=== PATIENT | female | born 1930 | race Caucasian/White ===

== ENCOUNTER → 2016-09-22 | Outpatient (REF) | payer MEDICARE, MEDICAID ==
[2016-09-22 19:27] LABS: PERCENT SATURATION 22.4 % (13.2-37.4)
== END ==
LOC: M LAB REF 17:10
PROVIDERS: ATTEND Internal Medicine Nephrology
DX: D64.9 Anemia, unspecified (principal)

== ENCOUNTER → 2016-11-27 | Outpatient (REF) | payer MEDICARE, MEDICAID ==
[~2016-11-27] MED LIST: ALLO100T PO; AMLO5TAB2 PO; ASPI1CHW2 PO; FURO20TA2 PO; GLIP10TA6 PO; MELA5TAB17 PO; METO1TAB7 PO; PROC20005 IJ; SIMV20TA2 PO; TRAD5TAB PO; TYLE500T78 PO; VITA100072 PO; VITAD1000T PO
== END ==
LOC: M LAB REF 17:11
PROVIDERS: ATTEND Internal Medicine Nephrology
DX: N18.4 Chronic kidney disease, stage 4 (severe) (principal); N39.0 Urinary tract infection, site not specified

== ENCOUNTER → 2017-02-10 | Outpatient (REF) | payer MEDICARE, MEDICAID ==
[2017-02-10 19:21] LABS: FOLATE 10.9 NG/ML
== END ==
LOC: M LAB REF 17:26
PROVIDERS: ATTEND Internal Medicine Nephrology
DX: N18.9 Chronic kidney disease, unspecified (principal); D63.1 Anemia in chronic kidney disease

== ENCOUNTER → 2017-03-03 | Outpatient (REF) | payer MEDICARE, MEDICAID ==
[2017-03-03 17:37] LABS: CHOLESTEROL LEVEL 72 MG/DL (<200); TRIGLYCERIDES LEVEL 137 MG/DL (<150)
[2017-03-04 10:31] LABS: HEPATITIS B SURFACE ANTIBODY NEGATIVE (POSITIVE)
== END ==
LOC: M LAB REF 12:40
PROVIDERS: ATTEND Internal Medicine Nephrology
DX: N17.9 Acute kidney failure, unspecified (principal); Z79.899 Other long term (current) drug therapy

== ENCOUNTER → 2017-03-04 | Outpatient (CLI) | payer MEDICARE, MEDICAID ==
--- NOTE | 2017-03-04 17:20 | REP ---
Renal ultrasound: Comparison is 01/23/2012. The kidneys are normal size. The right kidney measures 10.0-4.2 x 5.3 cm. The left kidney measures 9.4 x 5.2 x 4.4 cm. There is echogenic renal cortex bilaterally, compatible with chronic renal medical disease. There is a 2.1 x 2.0 cm simple cyst in the left kidney at the mid pole laterally. This is unchanged in size. There is a 5.3 centimeter complex cyst with septations in the left renal upper pole. This measured 6.8 cm [address]. On a CT of the abdomen and pelvis dated 02/20/2012 without IV contrast this cyst measured 6.0 cm. If the patient's clinical condition will I would recommend follow-up CT or MRI of this system without and with IV contrast. 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 Recommend follow-up MRI or CT without and with IV contrast if the patient's clinical condition will permit for follow-up evaluation of this cyst. Simple cyst in the right kidney. Otherwise, negative renal ultrasound. The bladder is nondistended and cannot be evaluated. Signed by Leno Doshi MD 03/04/2017 05:12 P
== END ==
LOC: M RAD 16:09
PROVIDERS: ATTEND Internal Medicine Nephrology
DX: N18.4 Chronic kidney disease, stage 4 (severe) (principal)

== ENCOUNTER → 2017-03-09 | Outpatient (REF) | payer MEDICARE, MEDICAID ==
[2017-03-09 19:25] LABS: CHOLESTEROL LEVEL 67 MG/DL (<200); TRIGLYCERIDES LEVEL 152 MG/DL (<150)
[2017-03-11 12:05] LABS: HEPATITIS B SURFACE ANTIBODY NEGATIVE (POSITIVE)
== END ==
LOC: M LAB REF 17:03
PROVIDERS: ATTEND Internal Medicine Nephrology
DX: N18.5 Chronic kidney disease, stage 5 (principal)

== ENCOUNTER → 2017-03-20 | Outpatient (CLI) | payer MEDICARE, MEDICAID ==
--- NOTE | 2017-03-20 16:16 | REP ---
BILATERAL UPPER EXTREMITY DUPLEX VENOUS AND ARTERIAL ULTRASOUND: Real-time ultrasound evaluation and duplex Doppler interrogation of the bilateral upper extremity arterial and venous systems is performed to evaluate for AV fistula placement. There is no DVT in bilateral upper extremities. Diameter of the right basilic vein at the upper humerus is 6 mm and lower humerus 5 mm. Diameter of the basilic vein in the forearm is 2 mm. Median cubital vein is 5 mm. Right cephalic vein demonstrates diameter of 3 mm in the upper humerus and 2 mm at the lower humerus and also in the forearm and at the wrist. Left basilic vein demonstrates diameter of 3 mm at the level of the humerus and 2 mm in the forearm and wrist. Left median cubital vein measures 3 mm. Left cephalic vein measures 3 mm in diameter at the level of the humerus and 2 mm in the forearm and wrist. The right axillary artery demonstrates a diameter of 7 mm with biphasic wave form and peak velocity of 38 cm/s. Right brachial artery demonstrates a diameter of 5 mm with triphasic wave form and peak velocity 81.3 cm/s. Right radial and ulnar arteries demonstrate triphasic wave forms with diameters of 2 mm. Left axillary artery demonstrates a diameter is 7 mm and peak systolic velocity 90.4 cm/s with triphasic wave form. Left brachial artery demonstrates diameter of 5 mm with triphasic wave form and peak velocity 77.8 cm/s. Left radial and ulnar arteries demonstrate a diameter of 2 mm with triphasic wave form in the radial artery and biphasic wave form in the ulnar artery. Signed by Leno Hendricks MD 03/23/2017 09:53 A
== END ==
LOC: M RAD 11:48
PROVIDERS: ATTEND Surgery Vascular Surgery
DX: N18.6 End stage renal disease (principal)

== ENCOUNTER 2017-04-02 10:54 | Day surgery (SDC) | payer MEDICARE, MEDICAID ==
[~2017-04-02] VITALS: Ht 160 cm; Wt 102.1 kg
[2017-04-02] MEDS ORDERED: NS 1,000 ML IV SCH (11:15)
[2017-04-02] MEDS ORDERED: PROPOFOL 200 MG/20 ML VIAL As Ordered ONE (12:16)
[2017-04-02] MEDS ORDERED: MIDAZOLAM INJ 2 MG/2 ML VIAL (J2250) As Ordered ONE (12:16)
[2017-04-02] MEDS ORDERED: fentaNYL 100 MCG/2 ML INJECTION (J3010) As Ordered ONE (12:16)
[2017-04-02] MEDS ORDERED: LIDOCAINE 2% INJ 100 MG/5 ML SDV (FOR ANES.) As Ordered ONE (12:16)
[2017-04-02] MEDS ORDERED: HEPARIN SOD (PORCINE) 5000 UNITS/ML VIAL As Ordered ONE (12:46)
[2017-04-02] MEDS ORDERED: BUPIVACAINE HCL 0.5% 30 ML VIAL As Ordered ONE (12:49)
[2017-04-02] MEDS ORDERED: LIDOCAINE 1% SDV INJ 30 ML VIAL As Ordered ONE (12:49)
[2017-04-02 15:18] VITALS: BP 174/71
--- NOTE | 2017-04-10 13:33 | RO ---
DATE OF PROCEDURE: 04/02/2017 PREOPERATIVE DIAGNOSIS: Chronic renal insufficiency, nearing end-stage renal disease. POSTOPERATIVE DIAGNOSES: Chronic renal insufficiency, nearing end-stage renal disease. PROCEDURE: Left brachiocephalic arteriovenous fistula creation. ATTENDING SURGEON: Lars Gardiner MD TINWARE LITHOGRAPH PRESS OPERATOR: None. ANESTHESIA: Local Monitored anesthesia care (MAC). ESTIMATED BLOOD LOSS: 30 mL IV FLUID: 300 mL HEPARIN: None. COMPLICATIONS: None. DRAINS: None. SPECIMENS: None. INDICATION: The patient is an 86-year-old female with renal insufficiency nearing end-stage renal disease who will require access in the future for hemodialysis. The patient was evaluated and felt to be a good candidate for a left brachiocephalic arteriovenous fistula as her ultrasound showed poor cephalic vein at the wrist and forearm region. Risks, benefits, and alternative treatment options were discussed with the patient. DESCRIPTION OF PROCEDURE: Patient was taken to the operating room, placed supine on the operating room table, and the left upper extremity was prepped and draped in a standard surgical fashion. A time-out was then conducted confirming the correct patient, procedure and laterality. The skin overlying the cephalic vein and brachial artery at the antecubital fossa were anesthetized with 1% lidocaine mixed with 0.50% Marcaine. A transverse incision was then made exposing the cephalic vein and the brachial artery which were both encircled with Vesseloops after being sharply dissected free. The cephalic vein was transected after ligating the cephalic vein as far distal as possible. This was dilated with heparinized saline and then anastomosis of the brachial artery in end-to-side fashion using #6-0 Prolene suture. There was good flow in the fistula at the completion of the anastomosis as well as in the brachial artery distal to the arteriovenous anastomosis. Hemostasis was obtained after which the incision was closed using #2-0 Vicryl to approximate the thecal layers and #3-0 Monocryl to approximate the skin in a running subcuticular fashion. Steri-Strips and dressings were applied. Patient tolerated the procedure well. All instrument, sponge, and needle counts were correct at the end of the case. There were no complications. Dr. Gardiner was present for and directed the entire case. Patient was transferred to the holding area and subsequently discharged in stable condition.
== END 2017-04-02 15:35 | disposition home or self-care (01) ==
LOC: M SDC 10:54
PROVIDERS: ATTEND Surgery Vascular Surgery
DX: N18.6 End stage renal disease (principal); Z98.61 Coronary angioplasty status; I25.10 Atherosclerotic heart disease of native coronary artery without angina pectoris; I25.2 Old myocardial infarction; E10.9 Type 1 diabetes mellitus without complications; Z79.4 Long term (current) use of insulin; Z88.8 Allergy status to other drugs, medicaments and biological substances; Z79.82 Long term (current) use of aspirin; Z79.899 Other long term (current) drug therapy
CPT/HCPCS: 36415; 36821; 84132; J2250; J3010

== ENCOUNTER → 2017-04-16 | Outpatient (CLI) | payer MEDICARE, MEDICAID ==
[~2017-04-16] MED LIST changes: +HEPARIN 1,000 UNITS/ML 10ML VIAL (FOR RADIOLOGY& DIALYSIS ONLY) As Ordered ONE; +LIDOCAINE 2% MDV 20 ML VIAL As Ordered ONE
--- NOTE | 2017-05-20 08:06 | REPIR ---
DATE OF PROCEDURE: 04/16/2017 PREPROCEDURE DIAGNOSIS: Acute renal failure requiring hemodialysis. POSTPROCEDURE DIAGNOSIS: Acute renal failure requiring hemodialysis. PROCEDURE: Ultrasound with fluoroscopic guided right internal jugular vein 19 cm tip to cuff central venous tunnel catheter placement with an EvenMore dialysis catheter. SURGEON: Dr. Lars Gardiner BAGGAGE CLERK: ANESTHESIA: Local with 20 mL of 2% lidocaine. FLUORO TIME: 2.222 minutes. CONTRAST: None. COMPLICATIONS: None. DRAINS: None. SPECIMENS: None. IMPLANTS: Right internal jugular vein 19 cm tips to cuff PermaCath. INDICATION: The patient is an 86-year-old female with renal failure requiring hemodialysis and access for dialysis. The patient will undergo placement of a central venous tunnel catheter for dialysis access. The risks, benefits, and alternative treatment options were discussed with the patient. DESCRIPTION OF PROCEDURE: The patient was taken to the angiography suite, placed supine on the angiography room table and then prepped and draped in the standard surgical fashion. The ultrasound was used to evaluate toe right internal jugular vein which was easily compressible, widely patent and free of thrombus. Ultrasound was then used to guide cannulation of the right internal jugular vein with real-time concurrent visualization of the entry of the micropuncture needle into the right internal jugular vein with a hard copy image preserved. The micropuncture wire was advanced through the micropuncture needle which was upsized to a micropuncture sheath and an wire was advanced through the micropuncture sheath which was used to sequentially dilate the right internal jugular vein under fluoroscopic guidance in an introducer sheath position. The 19 cm tip to cuff catheter was tunneled through a puncture wound in the right chest and was brought out of the puncture wound of the right internal jugular vein entry site and then advanced into the introducer sheath which was pealed away and removed. The catheter was positioned with the tip in the superior vena cava right atrial junction under fluoroscopic guidance. The catheter was then flushed and noted to flush easily and both ports were aspirated and noted to aspirate easily. The catheter was secured to the right anterior chest wall using #2-0 Prolene sutures. A puncture wound in the right neck was closed using #3-0 Monocryl in an inverted interrupted fashion. Dressing were applied. The patient tolerated the procedure well. All instruments, sponge and needle counts were correct at the end of the case. There were no complications. Dr. Gardiner was present for and directed the entire case. The catheter was stable for use with dialysis access. RADIOLOGIC SUPERVISION INTERPRETATION: The ultrasound showed the right internal jugular vein to be easily compressible, widely patent and free of thrombus and the ultrasound was used to guide cannulation with real-time concurrent visualization of the advancement of the micropuncture needle into the right internal jugular vein with a hard copy image preserved. The right internal jugular vein was then sequentially dilated under fluoroscopic guidance and the catheter positioned under fluoroscopic guidance with the tip in the superior vena cava right atrial junction. Final fluoroscopic image showed the catheter to be in good position and good alignment with no new hemothorax or pneumothorax noted and the catheter was stable for use for dialysis access.
== END | disposition home or self-care (01) ==
LOC: M IRPRO 13:32
PROVIDERS: ATTEND Surgery Vascular Surgery
DX: N17.9 Acute kidney failure, unspecified (principal)
CPT/HCPCS: 36558; 76937; 77001; C1750; C1769; C1894

== ENCOUNTER 2017-04-29 20:16 | Outpatient (CLI) | payer MEDICARE, MEDICAID ==
[~2017-04-29 20:16] MED LIST changes: -HEPARIN 1,000 UNITS/ML 10ML VIAL (FOR RADIOLOGY& DIALYSIS ONLY) As Ordered ONE; -LIDOCAINE 2% MDV 20 ML VIAL As Ordered ONE
[2017-04-29] MEDS ORDERED: amLODIPine 5 MG TAB PO SCH ×2 (21:00→22:45)
[2017-04-29] MEDS ORDERED: METOPROLOL SUCC (TopROL XL) 50MG **XL** TAB PO SCH ×2 (21:00→22:45)
[2017-04-29 23:03] VITALS: BP 188/79
== END 2017-04-30 08:45 | disposition home or self-care (01) ==
LOC: M OPCLI5PR 20:16 → M MS5PR 20:27 → M OPCLI5PR 04-30 08:45
PROVIDERS: ATTEND Internal Medicine Nephrology
DX: D50.0 Iron deficiency anemia secondary to blood loss (chronic) (principal); Z88.0 Allergy status to penicillin; Z88.8 Allergy status to other drugs, medicaments and biological substances; Z79.84 Long term (current) use of oral hypoglycemic drugs; Z79.899 Other long term (current) drug therapy
CPT/HCPCS: 36415; 36430; 86850; 86920; P9016

== ENCOUNTER → 2017-07-16 | Outpatient (CLI) | payer MEDICARE, MEDICAID ==
[~2017-07-16] MED LIST changes: -ALLO100T PO; -AMLO5TAB2 PO; -ASPI1CHW2 PO; -FURO20TA2 PO; -GLIP10TA6 PO; +ISOVUE-300 61% 50ML VIAL (Q9967) As Ordered; +LIDOCAINE 2% MDV 20 ML VIAL As Ordered; -MELA5TAB17 PO; -METO1TAB7 PO; -PROC20005 IJ; -SIMV20TA2 PO; -TRAD5TAB PO; -TYLE500T78 PO; -VITA100072 PO; -VITAD1000T PO
== END | disposition home or self-care (01) ==
LOC: M IRPRO 06:11
DX: T82.898A Other specified complication of vascular prosthetic devices, implants and grafts, initial encounter (principal); N18.6 End stage renal disease; E11.22 Type 2 diabetes mellitus with diabetic chronic kidney disease; I12.0 Hypertensive chronic kidney disease with stage 5 chronic kidney disease or end stage renal disease; E78.00 Pure hypercholesterolemia, unspecified; I25.10 Atherosclerotic heart disease of native coronary artery without angina pectoris; Z99.2 Dependence on renal dialysis
CPT/HCPCS: 36832